=== PATIENT | female | born 1975 | race Caucasian/White ===

== ENCOUNTER 2016-07-23 06:17 | Day surgery (SDC) | payer BC, MEDICAID, OTHER ==
--- NOTE | 2016-07-17 20:14 | HP ---
HISTORY AND PHYSICAL: ADDENDUM: PHYSICAL EXAMINATION EXTREMITIES: Exam of the right lower extremity, the incisions over the lateral aspect of the ankle are well healed, as well as the skin graft. The overall alignment shows some slight hind foot valgus but reconstructive osteotomy previously has helped this. She has no edema, ecchymosis, or gross deformities. She has limited range of motion of her hind foot; however, she has 5/5 strength throughout. Her sensation to light touch is intact. She has 2+ dorsalis pedis pulse. IMPRESSION: Right ankle osteoarthritis. PLAN: The patient is to undergo right total ankle replacement by Dr. Miles on 07/23/16. The risks, benefits, and postoperative course were discussed with the patient at length and she would like to proceed. She has a prescription for oxycodone for postoperative pain. She was also given a prescription for a shower chair for assistance after surgery as well. All of her questions were answered to her full satisfaction. We will follow up with the patient in the postoperative phase. RODRIGUEZ MARS [id number]/CPS #: [id number] TOSHIA
--- NOTE | 2016-07-17 20:55 | HP ---
CONTINUATION ADDENDUM NOW INCLUDED ON THIS REPORT PREOPERATIVE HISTORY AND PHYSICAL: DATE OF ADMISSION: 07/23/16 PROVIDER: Jori Miles MD (DICTATED BY RODRIGUEZ MARS) CHIEF COMPLAINT: Right ankle pain. HISTORY OF PRESENT ILLNESS: Alma is a 40-year-old female who has been followed by Dr. Miles for the past couple of years with ongoing pain in her right ankle. She states that she has always had chronic flat feet and developed a progressive collapse and then she underwent a triple arthrodesis in [place] [address] Grider and she felt as though this alleviated a lot of pain in the left side. However, the right side continued to bother her. In April 2012, she underwent a same procedure on the right which was complicated by an infection postoperatively. She underwent multiple irrigations and debridements. She also had a radial forearm free flap skin grafting to cover the defect. She then had some of the hardware removed in October 2012. She had persistent pain since that time. She underwent a subsequent hardware removal in 2014 which she has done fairly well with. She continues to have some pain in the lateral aspect of the ankle and has undergone multiple cortisone injections. She has also had progressively worsening osteoarthritic changes on her x-ray. She is interested in surgical intervention and after long discussion, she decided on a total ankle replacement. PAST MEDICAL HISTORY: Insulin-dependent diabetes, hypercholesterolemia. PAST SURGICAL HISTORY: Triple arthrodesis on the right ankle, triple arthrodesis on the left ankle, subsequent hardware removal of the right ankle, skin grafting of the right ankle as well. She had a , carpal tunnel release and tonsillectomy. She reports no complications with anesthesia with any of those procedures. CURRENT MEDICATIONS: 1. Percocet 5/325 mg 1 tab b.i.d. p.r.n. pain. 2. Victoza 1.8 mg as directed 3. Humalog insulin pump. 4. Atorvastatin. 5. Calcium 20 mg p.o. daily. 6. Topamax 50 mg as needed. 7. Pramipexole 0.5 mg p.o. q.h.s. for restless leg. 8. Zyrtec Allergy as needed. 9. Mononessa 0.25 mg-35 mcg p.o. daily. 10. Multivitamin as directed. 11. Vitamin D 1000 units p.o. daily. 12. Iron supplement 325 mg p.o. daily. 13. Vitamin C supplement 500 mg p.o. daily. ALLERGIES: BACTRIM, SHELLFISH, . She claims to have had hives with ASPIRIN. 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 She denies tobacco use. She denies acholic beverages. She exercises rarely. REVIEW OF SYSTEMS: Constitutional: Negative for recent hospitalization, fevers , chills, night sweats, or unexplained weight loss. Head: Negative for headaches, lightheadedness, or balance problems. Cardiovascular: Negative for chest or arm pain with exertion. History of heart attack, heart murmur, heart palpitations, high blood pressure, embolism, or deep vein thrombosis. Respiratory: Negative for chronic cough, shortness of breath with exertion, asthma, or COPD. Gastrointestinal: Negative for heartburn, nausea, vomiting, diarrhea, constipation, or GERD. Genitourinary: Negative for nighttime urination, frequency of urination, urinary tract infection, or kidney problems. Musculoskeletal: Negative for chronic back pain or recent fractures. Skin: Negative for rashes, lesions, lumps or sores. Neurologic: Negative for seizure , stroke, epilepsy, depression or anxiety. Endocrine: Negative for thyroid problems, positive for diabetes. Hematology: Negative for easy bleeding, bruising or anemia. PHYSICAL EXAMINATION GENERAL: She is a well-developed, well-nourished, heavyset female, in no acute distress at rest. She is alert and oriented x3 with appropriate mood and affect. VITAL SIGNS: The patient is 5 feet 9 inches and 254 pounds, blood pressure 114/ 76, pulse is 74, respirations 18. HEENT: Normocephalic, atraumatic. Hearing and vision are grossly intact. NECK: Trachea is midline. RESPIRATORY: Lungs are clear to auscultation bilaterally. No wheezes, rales or rhonchi. CARDIOVASCULAR: Regular rate and rhythm. No murmurs, rubs, or gallops. Normal S1 and S2. ABDOMEN: Soft, nondistended, nontender. Normal bowel sounds. CONTINUATION ADDENDUM: EXTREMITIES: Exam of the right lower extremity, the incisions over the lateral aspect of the ankle are well healed, as well as the skin graft. The overall alignment shows some slight hind foot valgus but reconstructive osteotomy previously has helped this. She has no edema, ecchymosis, or gross deformities. She has limited range of motion of her hind foot; however, she has 5/5 strength throughout. Her sensation to light touch is intact. She has 2+ dorsalis pedis pulse. IMPRESSION: Right ankle osteoarthritis. PLAN: The patient is to undergo right total ankle replacement by Dr. Miles on 07/23/16. The risks, benefits, and postoperative course were discussed with the patient at length and she would like to proceed. She has a prescription for oxycodone for postoperative pain. She was also given a prescription for a shower chair for assistance after surgery as well. All of her questions were answered to her full satisfaction. We will follow up with the patient in the postoperative phase. RODRIGUEZ MARS [id number]/CPS #: [id number]/CPS #: [id number] TOSHIA
[~2016-07-23 06:17] MED LIST: Buffered Lidocaine 1% SYR 3ML* 3 ML/SYR SYRINGE INTRADERM ONE; Famotidine IV* 10 MG/ML 2 ML (20 mg) IV ONE
[2016-07-23] MEDS ORDERED: Famotidine IV* 10 MG/ML 2 ML (20 mg) ONE (06:19)
[2016-07-23] MEDS ORDERED: ceFAZolin 2 GM PREMIX(*) 2 GM/50 ML BAG IVPB ONE (06:19)
[2016-07-23 06:32] LABS: Manual Entry Verification CAR0052; UR Preg Internal Control QC Line Present; UR Preg Kit Lot# 6030156
[2016-07-23] MEDS ORDERED: Morphine INJ* 10 MG/ML 1 ML SYRINGE ONE ×2 (07:06→09:33)
[2016-07-23] MEDS ORDERED: fentaNYL* 50 MCG/ML 2 ML VIAL (100 MCG VIAL) ONE (07:11)
[2016-07-23] MEDS ORDERED: KETAMINE HCL* 50 MG/ML 10 ML VIAL ONE (07:11)
[2016-07-23] MEDS ORDERED: Midazolam* 1 MG/ML 5 ML VIAL (5 MG) ONE (07:12)
[2016-07-23] MEDS ORDERED: Bupivacaine 0.5% SDV PF* 30 ML VIAL ONE (07:43)
[2016-07-23] MEDS ORDERED: fentaNYL* 50 MCG/ML 2 ML VIAL (100 MCG VIAL) IV PRN (08:10)
[2016-07-23] MEDS ORDERED: oxyCODONE TAB* 5 MG TAB PO PRN (08:10)
[2016-07-23] MEDS ORDERED: PROCHLORPERAZINE INJ 5 MG/ML 2 ML VIAL IV PRN (08:10)
[2016-07-23] MEDS ORDERED: Morphine INJ* 2 MG/ML 1 ML SYRINGE IV PRN (08:10)
[2016-07-23] MEDS ORDERED: Bupivacaine 0.25% SDV* 30 ML ONE (08:43)
[2016-07-23] MEDS ORDERED: PROCHLORPERAZINE INJ 5 MG/ML 2 ML VIAL ONE (08:43)
[2016-07-23] MEDS ORDERED: Propofol* 10 MG/ML 20 ML BTL IV PUSH ONE (08:43)
[2016-07-23] MEDS ORDERED: Ondansetron INJ* 2 MG/ML VIAL ONE (08:43)
[2016-07-23] MEDS ORDERED: Lidocaine 2% PF * 5 ML VIAL ONE (08:43)
[2016-07-23] MEDS ORDERED: oxyCODONE TAB* 5 MG TAB ONE (10:34)
[2016-07-23 11:33] VITALS: BP 102/66
--- NOTE | 2016-07-23 18:12 | RAD ---
INDICATION: RIGHT total ankle replacement COMPARISON: November 25, 2014 radiographs TECHNIQUE: 38.9 seconds fluoroscopy. FINDINGS: Spot images document a total talocrural joint prosthesis in place with gross anatomic alignment. Innumerable surgical clips at the visualized distal lower leg and lateral aspect of the ankle. IMPRESSION: Procedural fluoroscopy. CPT II Codes: 6045F
--- NOTE | 2016-07-24 01:41 | OP ---
DATE OF OPERATION: 07/23/16 [facility] DATE OF : 75 SURGEON: Jori Miles MD. ASSISTANTS: RODRIGUEZ Padilla and RODRIGUEZ Mckeon ANESTHESIOLOGIST: Joseph Zendejas MD ANESTHESIA: General, with nerve block. PRE-OP DIAGNOSIS: Right tibiotalar arthritis. POST-OP DIAGNOSIS: Right tibiotalar arthritis. OPERATIVE PROCEDURE: Right tibiotalar arthroplasty with a STAR total ankle, extra small talus and large tibia, 7 mm Poly. DESCRIPTION OF PROCEDURE: The patient was taken to the operating room and a longitudinal incision was made over the tibiotalar joint. The anterior tibial tendon was protected medially, so we went through the retinaculum over the extensor hallucis. Neurovascular bundle was reflected laterally. We placed Rockwell retractors around the medial and lateral malleolus and then placed in the distal tibial cutting jig. Proper alignment and translation distally was verified using the C-arm and then we cut the distal tibia. Some of the bone fragments in the posterior malleolus were not able to be removed at this point. We then placed the ankle in neutral and centered the guide pin in the middle of the talus and made a flat cut on the talar dome. The datum was then placed in the center of the talar dome to allow the anterior and posterior cuts. At this point, we were able to remove the remaining portion of the posterior malleolus. The basket guide appeared to fit well and we cut the medial lateral gutter with a sabre saw and then prepared the keel for the center of the talar component. We sized the talus to an extra small and the tibia to a large. The distal tibial angle hole guide was placed and we drilled out the parallel tho for the tibia. At this point, the extra small talus was driven in on to the kaibab bone of the talus. Good fixation appeared to be obtained and similarly the large tibia was placed at the plafond, driven anterior and posterior. We sized a 7 mm Poly which gave medial lateral stability. We irrigated thoroughly closing the retinaculum with interrupted 0-Vicryl sutures, 2-0 Vicryl for the subcu and quinn for the skin, a compression dressing and plaster splint applied. [id number]/[facility] #: [id number] [facility]
== END 2016-07-23 12:01 | disposition home or self-care (01) ==
LOC: OR 06:17
PROVIDERS: ATTEND Orthopaedic Surgery
DX: M19.071 Primary osteoarthritis, right ankle and foot (principal); E11.9 Type 2 diabetes mellitus without complications; Z79.4 Long term (current) use of insulin; E78.5 Hyperlipidemia, unspecified; G89.29 Other chronic pain; Z79.891 Long term (current) use of opiate analgesic
CPT/HCPCS: 76000; 81025; A9270-GY; C1776 ×2; J0690; J0780; J2250; J2270; J2405; J2704; J3010

== ENCOUNTER 2016-09-20 10:39 | Inpatient (IN) | payer OTHER ==
[2016-09-20] MEDS ORDERED: oxyCODONE/Acetamin 5/325 MG* TAB PO PRN (14:23)
[2016-09-20] MEDS ORDERED: Acetaminophen TAB* 325 MG PO PRN (14:23)
[2016-09-20] MEDS ORDERED: Ondansetron INJ* 2 MG/ML VIAL IV PRN (14:23)
[2016-09-20] MEDS ORDERED: diPHENhydraMINE IV* 50 MG/ML 1 ml VIAL (BENADRYL) IV PRN (14:23)
[2016-09-20] MEDS ORDERED: Vancomycin per Pharmacy* NOTE FOLLOW UP PRN (14:56)
[2016-09-20] MEDS ORDERED: Vancomycin(*) 1,500 MG in NS 0.9% 250 ML* 250 ML IVPB ONE (15:00)
[2016-09-20 15:15] LABS: Hematocrit 38 % (35-47); Hemoglobin 12.3 g/dl (12.0-16.0); Mean Corpuscular HGB Conc 33 g/dl (31-36); Mean Corpuscular Hemoglobin 29 pg (27-31); Mean Corpuscular Volume 89 fL (80-97); Mean Platelet Volume 11 um3 (7.4-10.4); Red Blood Count 4.24 10^6/ul (4.0-5.4); Red Cell Distribution Width 14 % (10.5-15); White Blood Count 9.4 10^3/ul (3.5-10.8)
[2016-09-20 15:26] LABS: C Reactive Protein 54.84 mg/L (< 5.00); EGFR African American 85.4 (>60); EGFR Non-African American 66.4 (>60)
[2016-09-20] MEDS: oxyCODONE/Acetamin 5/325 MG* TAB PO PRN ×3 (15:42→22:30)
[2016-09-20] MEDS: Enoxaparin(*) 40 MG/0.4 ML SYR SUBCUT SCH (16:27)
[2016-09-20 16:54] LABS: Erythrocyte Sed Rate 47 mm/Hr (0-14)
[2016-09-20] MEDS ORDERED: INSULIN LISPRO SUBCUT SCH (18:00)
--- NOTE | 2016-09-20 18:04 | HP ---
PREOPERATIVE HISTORY AND PHYSICAL: DATE OF ADMISSION: 09/20/16 PROVIDER: Jori Miles MD CHIEF COMPLAINT: Right leg pain. HISTORY OF PRESENT ILLNESS: Alma is a 41-year-old female, who has been followed previously by Dr. Miles for end-stage osteoarthritis of the right ankle. She underwent a total ankle replacement on 07/23/16 and has had some complications with healing. She recently had some wound breakdown, which has gradually worsened. She has been applying bacitracin over the area; however, the breakdown has continued. She has been presented to the office today with significant increase in pain and swelling over the last several days as well as low-grade fevers. She does not have a recorded temperature; however, she has been on Cipro for the last couple of weeks. She denies any new injury. She denies any paresthesias or numbness in the legs. PAST MEDICAL HISTORY: Insulin-dependent diabetes and hypercholesterolemia. ALLERGIES: ASPIRIN, BACTRIM, GLYSET, SULFA, and SHELLFISH. CURRENT MEDICATIONS: 1. Gabapentin 300 mg p.o. q.h.s. 2. Oxycodone 5 mg p.o. q.6 to 8 hours p.r.n. pain. 3. Victoza 1.8 mg. 4. Humalog insulin pump. 5. Atorvastatin 20 mg p.o. daily. 6. Pramipexole 0.5 mg p.o. q.h.s. 7. Zyrtec Allergy as needed. 8. Mononessa 0.25 mg/35 mcg p.o. daily. 9. Multivitamin daily. 10. Vitamin D 1000 units daily. 11. Iron supplement 325 mg daily. 12. Vitamin C 500 mg daily. PAST SURGICAL HISTORY: Triple arthrodesis of the right ankle, triple arthrodesis of the left ankle with subsequent hardware removal of the right ankle, skin grafting on the right ankle, right total ankle replacement, C- section, carpal tunnel release, and tonsillectomy. 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 She denies tobacco use. She denies acholic beverages. She exercises rarely. She denies any illicit drug use. REVIEW OF SYSTEMS: Constitutional: Positive for fevers and chills. Negative for night sweats or unexplained weight loss. Head: Negative for headaches, lightheadedness, or balance problems. Cardiovascular: Negative for chest or arm pain with exertion, history of heart attack, heart murmur, heart palpitations, high blood pressure, embolism, or deep vein thrombosis. Respiratory: Negative for chronic cough, shortness of breath with exertion, asthma, or COPD. Gastrointestinal: Negative for heartburn, nausea, vomiting, diarrhea, constipation, or GERD. Genitourinary: Negative for nighttime urination, frequency of urination, urinary tract infection, or kidney problems. Musculoskeletal: Negative for chronic back pain or recent fractures. Positive for right leg swelling. Skin: Negative for rashes, lesions, lumps, or sores. Positive for some wound dehiscence after surgery. Neurologic: Negative for seizure, stroke, epilepsy, depression, or anxiety. Endocrine: Negative for thyroid problems. Positive for diabetes. Hematology: Negative for easy bleeding, bruising, or anemia. PHYSICAL EXAMINATION VITAL SIGNS: The patient is 5 feet 9 inches and 254 pounds. Blood pressure 117 /75, pulse of 80, temperature 97.7. GENERAL: She is a well-developed, well-nourished, female, in no acute distress at rest. She is alert and oriented x3 with appropriate mood and affect. HEENT: Normocephalic, atraumatic. Hearing and vision are grossly intact. NECK: Trachea is midline. CARDIOVASCULAR: Regular rate and rhythm. No murmurs, rubs, or gallops. Normal S1 and S2. RESPIRATORY: Lungs are clear to auscultation bilaterally. No wheezes, rales, or rhonchi. ABDOMEN: Soft, nondistended, nontender. Normal bowel sounds. EXTREMITIES: At the right lower extremity, the patient has 2 areas of wound dehiscence throughout the anterior incision over the ankle. There is some exposed tendon to the mid portion of the wound. There is significant surrounding erythema and edema throughout the lower leg. She is tender to palpation diffusely around the ankle joint as well as up into the posterior calf. She is able to dorsiflex and plantarflex with the ankle; however, this causes her significant discomfort. Her sensation to light touch is intact. She has a 2+ dorsalis pedis pulse. IMPRESSION: Right lower extremity cellulitis and possible deep venous thrombosis. PLAN: The patient will be directly admitted to the [facility] for IV antibiotics. CBC, BMP, ESR, and CRP will be ordered to rule out any sort of infectious cause. Joint aspiration was attempted in the office, however, no fluid was produced for culture. The patient will undergo an ultrasound to rule out DVT. We will consult Dr. Machado for Infectious Disease and antibiotic selection. We will also consult hospitalist for comanagement of her medical problems including her diabetes to ensure that patient had good blood sugar control. RODRIGUEZ MARS [id number]/[facility] #: [id number] TOSHIA
[2016-09-20] MEDS: Atorvastatin* 20 MG TAB PO SCH (18:09)
[2016-09-20] MEDS: Multivitamins/Minerals TAB PO SCH (18:09)
[2016-09-20] MEDS: Cholecalciferol TAB* 1000 UNITS PO SCH (18:09)
[2016-09-20] MEDS: Cetirizine* 10 MG TAB PO SCH (18:09)
[2016-09-20] MEDS: Topiramate TAB(*) 25 MG PO SCH (18:10)
[2016-09-20] MEDS ORDERED: Insulin LISPRO* FOR INSULIN PUMP SUBCUT SCH (18:15)
--- NOTE | 2016-09-20 18:58 | RAD ---
Indication: Right leg edema. Duplex Doppler sonography of the deep venous system of the right lower extremity deep venous system was performed. Bilaterally the common femoral veins appear patent and compressible. Right proximal greater saphenous vein, proximal deep femoral vein, femoral vein, popliteal vein, posterior tibial veins and peroneal veins appear patent and compressible. Portions of the peroneal veins are limited in evaluation. IMPRESSION: NO EVIDENCE OF DEEP VENOUS THROMBOSIS IS IDENTIFIED.
[2016-09-20] MEDS: Gabapentin CAP(*) 300 MG PO SCH (20:17)
[2016-09-20] MEDS: Pramipexole TAB* 0.5 MG PO SCH (20:17)
--- NOTE | 2016-09-20 21:53 | CONS ---
CC: Dr. Jori Miles; Dr. Niall Plascencia * CONSULTATION NOTE: DATE OF CONSULT: 09/20/16 PRIMARY CARE PROVIDER: Dr. Niall Plascencia. PHYSICIAN REQUESTING CONSULTATION: Dr. Jori Miles. ATTENDING PHYSICIAN: Dr. Butch Mcgee (dictated by Wendy Bailey NP). REASON FOR CONSULT: Co-medical management in a patient with a history of diabetes and hyperlipidemia CHIEF COMPLAINT: Right ankle swelling and redness. HISTORY OF PRESENT ILLNESS: Ms. Thurman is a 41-year-old female with past medical history significant for type 1 diabetes mellitus and multiple right ankle surgeries, who states that she underwent a triple arthrodesis in [place] to her right ankle. The patient reports having this revised twice undergoing multiple steroid injections and hardware removal and finally underwent a right total ankle replacement in July of this year with Dr. Mlies. The patient states she has been doing well postoperatively, had seen Dr. Miles on 09/06/16 , 09/13/16, and today for complaints of right ankle swelling for about 3 week. The patient was started on Cipro on 09/13/16. The patient denies any recent fever, chills, shortness of breath, chest pain, nausea, vomiting, diarrhea. The patient states that her glucose has been well controlled and that her last hemoglobin A1c was 6.1. Hospitalists were asked to assist with the comanagement of this patient during her hospitalization. PAST MEDICAL HISTORY: 1. Type 1 diabetes mellitus. 2. Hypercholesterolemia. 3. Migraines. 4. Restless leg syndrome. PAST SURGICAL HISTORY: 1. Status post right ankle triple arthrodesis x2. 2. Status post left ankle arthrodesis in 2005. 3. Status post removal of the right ankle. 4. Status post skin grafting to the right ankle. 5. Status post section in 2004. 6. Status post bilateral carpal tunnel release. 7. Status post tonsillectomy in 1997. HOME MEDICATIONS: Include: 1. Ferrous sulfate 325 mg oral daily. 2. Vitamin C 500 mg oral daily. 3. SymlinPen 60 mcg subcutaneously with meals. 4. Oxybutynin 5 mg oral every 5 days. 5. Gabapentin 600 mg oral daily at bedtime. 6. Cipro 500 mg oral twice daily for 21 days, the patient started taking on . 7. Lipitor 20 mg oral every evening. 8. Mirapex 1 mg oral every evening. 9. Ortho-Cyclen 1 tablet oral every evening. 10. Multivitamin 1 tablet oral daily. 11. Vitamin D 2000 units oral every evening. 12. Zyrtec 10 mg oral every evening. 13. Sonata 10 mg oral daily at bedtime as needed for sleep. 14. Topamax 50 mg oral every evening. 15. Imitrex 1 tablet oral daily as needed for migraine headaches. 16. Oxycodone 5 to 10 mg oral every 6 hours as needed for pain. 17. Humalog insulin pump basal rate is from midnight to 0659, 1.1 units per hour; 0700 to 1459, 2.5 units an hour; and from 1500 to 2359, 1.5 units an hour for a total of 38.8 basal units daily. The patient also uses sliding scale coverage with her meals for carbohydrate coverage and fingerstick coverage. ALLERGIES: ALMOND MEAL, ASPIRIN, MIGLITOL, SHELLFISH, SULFA, BACTRIM, TREE NUTS , ALMONDS, CASHEWS, and PECANS. FAMILY HISTORY: The patient reports that her father has had several myocardial infarctions. The patient's father and 2 maternal aunts have a history of diabetes mellitus. The patient's maternal grandfather has a history of colon cancer. 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 She denies tobacco or recreational drug use. She rarely drinks alcoholic beverages. The patient's boyfriend, Frank Moon; mother, Kristan Sheppard; and cousin, Juliette Chu, will be her surrogate decision makers in the event that she is unable to make decisions for herself. REVIEW OF SYSTEMS: I performed a 14-point review of systems. All the pertinent positives and negatives are mentioned in the history of present illness. The remaining of review of systems are negative. PHYSICAL EXAM: Vital Signs: Temperature 98.4, heart rate 90, respiratory rate 18, O2 sat 100% on room air, blood pressure 146/60. General Appearance: The patient is alert, pleasant, appears to be in no acute distress. HEENT: Normocephalic, atraumatic. Pupils are equal and reactive to light. Extraocular movements are intact. Respiratory: There is no accessory muscle use and the lungs are clear to auscultation bilateral. Cardiovascular: Regular rate and rhythm. S1, S2 are present. There are no murmur, rubs, or gallops heard. Abdomen: Soft, nontender, nondistended. There are bowel sounds present x4. Extremities: There is trace bilateral lower extremity edema. DP and PT pulses are 2+ and symmetric. Musculoskeletal: There is no clubbing or cyanosis noted. The patient exhibits good strength in all extremities. Neurologic: The patient is alert and oriented x4. Cranial nerves II through XII are grossly intact. Psychological: The patient is calm and cooperative. Skin: The patient has some erythema to her right lower extremity and Jace wrap to her right lower extremity. DIAGNOSTIC STUDIES/LAB DATA: CRP 54.84. Serum creatinine 0.93. White blood cell count 9.4, hemoglobin 12.3, hematocrit 38, and platelet count 287. ESR pending. IMPRESSION: Ms. Thurman is a 41-year-old with past medical history significant for type 1 diabetes mellitus, hypercholesterolemia, who is status post right total ankle replacement in July of this year, who presented to the hospital with a right lower extremity cellulitis. Hospitalists have been asked to assist with co-medical management in this patient during her hospitalization. ASSESSMENT AND PLAN: 1. Right lower extremity cellulitis. The patient will be on vancomycin per Orthopedic Surgery. They have asked for a Infectious Disease consultation. 2. Diabetes mellitus. The patient will be continued on her home insulin pump with a basal dosing from midnight to 0659 of 1.1 units an hour; from 0700 to 1459, 2.5 units an hour; and from 1500 to 2359, 1.5 units an hour in addition to carb and insulin sliding scale coverage per her home routine. The patient reports her last hemoglobin A1c was 6.1 and she follows with her schedule hanger in [place] every 3 months. For now we will hold her SymlinPen. 3. Hyperlipidemia. The patient will be continued on her home atorvastatin. 4. Migraines. The patient will be continued on her daily Topamax. 5. Restless leg syndrome. The patient will be continued on her home Mirapex. 6. Fluids, electrolytes, nutrition. The patient will be on a consistent carbohydrate diet. 7. Code status. Full code. 8. DVT prophylaxis. The patient is at highest risk and will be on Lovenox per Orthopedics. 9. Disposition. Inpatient. TIME SPENT: The time for this consultation was 60 minutes, greater than half the time was spent [id number] with the patient discussing medication, past medical history, the events leading up to her arrival today, and performing a physical examination. The case has been reviewed with the attending doctor, Dr. Mcgee, who agrees with the plan of care. Reviewed by [place] 09/21/16 0719 [id number]/[facility]PS #: [id number]/CPS #: [id number] MTDPat
--- NOTE | 2016-09-20 22:34 | CONS ---
ADDENDUM: I accidentally dictated a consultation report as a history and physical. If you could please move that over to be a consultation report. SHANNAN HANNA, EBONIE [id number]/[facility] #: [id number] TOSHIA
[2016-09-20] MEDS: Vancomycin(*) 1,000 MG in NS 0.9% 250 ML* 250 ML IVPB SCH (23:53)
[2016-09-21] MEDS: Morphine INJ* 2 MG/ML 1 ML SYRINGE IV PRN (02:08)
[2016-09-21] MEDS: oxyCODONE/Acetamin 5/325 MG* TAB PO PRN ×5 (06:16→22:35)
[2016-09-21] MEDS: Vancomycin(*) 1,000 MG in NS 0.9% 250 ML* 250 ML IVPB SCH ×2 (08:02→17:27)
[2016-09-21] MEDS ORDERED: Ferrous Sulfate TAB* 325 MG PO SCH (09:00)
[2016-09-21] MEDS ORDERED: Ascorbic Acid TAB* 500 MG PO SCH (09:00)
[2016-09-21] MEDS: cefTRIAXone VIAL(*) 1,000 MG in NS 0.9% 50 ML* 50 ML IVPB SCH (12:10)
--- NOTE | 2016-09-21 13:43 | PN ---
Progress Note - Progress Note Date of Service: 09/21/16 SOAP: Subjective: []Patient seen at bedside with nursing staff. She is doing better overall but would like to know if she has to stay over the weekend or can go home later with IV antibiotics with a PICC line. Dr. Machado is not available until . Objective: [] Vital Signs Temp 98.0 F 09/21/16 07:43 Pulse 71 09/21/16 07:43 Resp 18 09/21/16 09:28 BP 109/60 09/21/16 07:43 Pulse Ox 100 09/21/16 07:43 Intake & Output 09/20/16 09/21/16 09/21/16 18:59 06:59 18:59 Intake Total 2235 913 Output Total 3825 1800 Balance -1590 -887 Weight 252 lb Intake: IV Fluids 630 161 LR 630 161 IVPB 265 272 Vancomycin 265 272 Oral 1340 480 Output: Urine 3825 1800 Other: # Bowel Movements 0 Estimated Stool Amount Medium Laboratory Results - last 24 hr 09/20/16 09/20/16 09/20/16 15:00 15:00 18:07 WBC 9.4 RBC 4.24 Hgb 12.3 Hct 38 MCV 89 MCH 29 MCHC 33 RDW 14 Plt Count 287 MPV 11 H Neut % (Auto) 55.0 Lymph % (Auto) 27.2 [place] % (Auto) 9.7 H Eos % (Auto) 7.8 H Baso % (Auto) 0.3 Absolute Neuts (auto) 5.1 Absolute Lymphs (auto) 2.5 Absolute Monos (auto) 0.9 H Absolute Eos (auto) 0.7 H Absolute Basos (auto) 0 Absolute Nucleated RBC 0 Nucleated RBC % 0.1 ESR 47 H Creatinine 0.93 Est GFR ( Amer) 85.4 Est GFR (Non-Af Amer) 66.4 POC Glucose (mg/dL) 120 H C-Reactive Protein 54.84 H 09/20/16 09/21/16 09/21/16 21:34 07:56 12:07 WBC RBC Hgb Hct MCV MCH MCHC RDW Plt Count MPV Neut % (Auto) Lymph % (Auto) [place] % (Auto) Eos % (Auto) Baso % (Auto) Absolute Neuts (auto) Absolute Lymphs (auto) Absolute Monos (auto) Absolute Eos (auto) Absolute Basos (auto) Absolute Nucleated RBC Nucleated RBC % ESR Creatinine Est GFR ( Amer) Est GFR (Non-Af Amer) POC Glucose (mg/dL) 87 94 77 C-Reactive Protein Right LLE dressings changed, 2 small areas of wound dehiscence, proximal is drying out, distal one with moderate wet necrosis. No foul odor. Right LLE swelling overall has improved Mild diffuse leg erythema and mild warmth noted neuro intact distally New betadine soaked 4x4s, kerlix and Jace applied to right ankle Assessment: []Cellulitis and Right dorsal ankle wound infection s/p Right total ankle arthroplasty 08/01 Plan: []IV Vanco and Ceftriaxone Await any changes per Dr. Miles
[2016-09-21] MEDS: Enoxaparin(*) 40 MG/0.4 ML SYR SUBCUT SCH (15:16)
[2016-09-21] MEDS ORDERED: Vancomycin Trough Check NOTE FOLLOW UP ONE (16:00)
--- NOTE | 2016-09-21 17:37 | PN ---
Subjective Date of Service: 09/21/16 Interval History: Patient seen and examined at bedside. Pt states that she is feeling well. Denies fever, chills, shortness of breath, chest discomfort, N/V/D. Pt feels that the swelling in her LE is improving today. Family History: Unchanged from Admission Social History: Unchanged from Admission Past Medical History: Unchanged from Admission Objective Active Medications: Acetaminophen (Tylenol Tab*) 650 mg PO Q6H PRN Reason: PAIN OR TEMPERATURE Ascorbic Acid (Vitamin C Tab*) 500 mg PO 2000 [facility] Atorvastatin Calcium (Lipitor*) 20 mg PO QPM TRAY Cetirizine HCl (Zyrtec*) 10 mg PO QPM TRAY Reason: Protocol Cholecalciferol (Vitamin D Tab*) 2,000 units PO QPM TRAY Diphenhydramine HCl (Benadryl Iv*) 25 mg IV Q6H PRN Reason: PRURITIS Enoxaparin Sodium (Lovenox(*)) 40 mg SUBCUT Q24H TRAY Ferrous Sulfate (Ferrous Sulfate Tab*) 325 mg PO 2000 [facility] Gabapentin (Neurontin Cap(*)) 600 mg PO BEDTIME TRAY Vancomycin HCl 1,000 mg/ (Sodium Chloride) 250 mls @ 166.667 mls/hr IVPB Q8H TRAY Ceftriaxone Sodium 1,000 mg/ (Sodium Chloride) 50 mls @ 200 mls/hr IVPB Q24H TRAY Insulin Human Lispro (Humalog*) 0 units SUBCUT .SEE PROTOCOL TRAY Reason: Protocol Morphine Sulfate (Morphine Inj (Syringe)*) 2 mg IV Q2H PRN Reason: PAIN Multivitamins/Minerals (Theragran/Minerals Tab*) 1 tab PO QPM [facility] Ondansetron HCl (Zofran Inj*) 4 mg IV Q6H PRN Reason: NAUSEA Oxycodone/Acetaminophen (Percocet 5/325 Tab*) 1 tab PO Q3H PRN Reason: PAIN - MODERATE Oxycodone/Acetaminophen (Percocet 5/325 Tab*) 2 tab PO Q3H PRN Reason: PAIN - MODERATE Pharmacy Consult (Vancomycin Per Pharmacy*) 1 note FOLLOW UP . PRN Reason: PER PROTOCOL Pramipexole Dihydrochloride (Mirapex Tab*) 1 mg PO QPM TRAY Topiramate (Topamax(*)) 50 mg PO QPM [facility] Vital Signs 0709/20/16 09/20/16 17:42 19:06 19:37 Temperature 99.0 F Pulse Rate 80 Respiratory 18 18 16 Rate Blood Pressure 109/38 (mmHg) O2 Sat by Pulse 97 Oximetry 09/20/16 09/20/16 09/20/16 22:17 22:30 23:28 Temperature 98.2 F Pulse Rate 71 Respiratory 16 18 16 Rate Blood Pressure 109/44 (mmHg) O2 Sat by Pulse 100 Oximetry 09/21/16 09/21/16 09/21/16 03:50 06:16 07:30 Temperature 98.0 F Pulse Rate 70 Respiratory 16 16 14 Rate Blood Pressure 110/45 (mmHg) O2 Sat by Pulse 100 Oximetry 09/21/16 09/21/16 09/21/16 07:43 08:16 09:28 Temperature 98.0 F Pulse Rate 71 Respiratory 14 18 18 Rate Blood Pressure 109/60 (mmHg) O2 Sat by Pulse 100 Oximetry 09/21/16 09/21/16 09/21/16 13:35 13:57 15:17 Temperature 98.1 F 97.9 F Pulse Rate 75 74 Respiratory 15 5 20 Rate Blood Pressure 128/62 116/56 (mmHg) O2 Sat by Pulse 98 100 Oximetry Oxygen Devices in Use Now: None Appearance: NAD, sitting up in bed Eyes: No Scleral Icterus Ears/Nose/Mouth/Throat: Mucous Membranes Moist Respiratory: Symmetrical Chest Expansion and Respiratory Effort, Clear to Auscultation Cardiovascular: NL Sounds; No Murmurs; No JVD, RRR Abdominal: NL Sounds; No Tenderness; No Distention Extremities: - - Trace bilateral LE edema Skin: No Rash or Ulcers, - - DSG to right LE clean, dry and intact Neurological: Alert and Oriented x 3, NL Muscle Strength and Tone Lines/Tubes/Other Access: Clean, Dry and Intact Peripheral IV - site benign Nutrition: Taking PO's Result Diagrams: 09/20/16 15:00 09/20/16 15:00 Assess/Plan/Problems-Billing Assessment: Ms. Shen is a 41 yo female with PMH significant for DM type 1, HLD who is s/p right total ankle replacement who presented to the hospital with right LE cellulitis. Hospitalists have been asked to assist with co-medical management. - Patient Problems (1) Cellulitis Code(s): L03.90 - CELLULITIS, UNSPECIFIED SNOMED Code(s): 416002808 Comment: - Management per Ortho - Afebrile and no leukocytosis - ID consult pending - Continue Vanco and ceftriaxone (2) Diabetes Code(s): E11.9 - TYPE 2 DIABETES MELLITUS WITHOUT COMPLICATIONS SNOMED Code(s) : 40005179 Comment: - Glucose 70-90's - Continue insulin pump (3) HLD (hyperlipidemia) Code(s): E78.5 - HYPERLIPIDEMIA, UNSPECIFIED SNOMED Code(s): 11257869 Comment: - Continue atorvastatin (4) Migraines Code(s): G43.909 - MIGRAINE, UNSP, NOT INTRACTABLE, WITHOUT STATUS MIGRAINOSUS SNOMED Code(s): 53012415 Comment: - Continue Topamax (5) RLS (restless legs syndrome) Comment: - Continue Mirapex (6) DVT prophylaxis Code(s): NKV0436 - SNOMED Code(s): 766972515 Comment: - Continue Lovenox (7) Full code status Code(s): Z78.9 - OTHER SPECIFIED HEALTH STATUS SNOMED Code(s): 889898354 Status and Disposition: Inpatient. Disposition per Ortho.
[2016-09-21] MEDS: Multivitamins/Minerals TAB PO SCH (18:13)
[2016-09-21] MEDS: Topiramate TAB(*) 25 MG PO SCH (18:14)
[2016-09-21] MEDS: Pramipexole TAB* 0.5 MG PO SCH (18:14)
[2016-09-21] MEDS: Cholecalciferol TAB* 1000 UNITS PO SCH (18:14)
[2016-09-21] MEDS: Atorvastatin* 20 MG TAB PO SCH (18:14)
[2016-09-21] MEDS: Cetirizine* 10 MG TAB PO SCH (18:15)
[2016-09-21] MEDS: Gabapentin CAP(*) 300 MG PO SCH (20:26)
[2016-09-21] MEDS: Ferrous Sulfate TAB* 325 MG PO SCH (20:26)
[2016-09-21] MEDS: Ascorbic Acid TAB* 500 MG PO SCH (20:27)
[2016-09-22] MEDS: Vancomycin(*) 1,000 MG in NS 0.9% 250 ML* 250 ML IVPB SCH ×3 (00:09→16:02)
[2016-09-22] MEDS: Morphine INJ* 2 MG/ML 1 ML SYRINGE IV PRN ×3 (01:52→10:24)
[2016-09-22] MEDS: oxyCODONE/Acetamin 5/325 MG* TAB PO PRN ×4 (08:03→21:44)
--- NOTE | 2016-09-22 08:36 | PN ---
Progress Note - Progress Note Date of Service: 09/22/16 SOAP: Subjective: Pt doing well today, still has some pain but improving. Feels as though redness and swelling are much better. Denies CP/SOB, f/c Objective: Vitals: Temp Pulse Resp BP Pulse Ox 98.0 F 76 16 113/46 99 09/22/16 03:21 09/22/16 03:21 09/22/16 08:03 09/22/16 03:21 09/22/16 03:21 Gen: A&O x3, NAD laying in bed RLE: Incision still with some wound dehiscence, but surrounding erythema improved. No edema, +f/e at ankle and MTPs with less pain. N/V intact Assessment: R leg cellulitis s/p R total ankle replacement and wound dehiscence Plan: Cont IV abx and elevation Cont dressing changes BID Awaiting ID consult
[2016-09-22] MEDS: cefTRIAXone VIAL(*) 1,000 MG in NS 0.9% 50 ML* 50 ML IVPB SCH (11:41)
--- NOTE | 2016-09-22 12:58 | PN ---
Subjective Date of Service: 09/22/16 Interval History: Patient seen and examined at bedside. Pt states that her pain is controlled. Denies fever, chills, shortness of breath, chest discomfort, N/V/D. Pt states that the redness and swelling in her right LE are improving. Family History: Unchanged from Admission Social History: Unchanged from Admission Past Medical History: Unchanged from Admission Objective Active Medications: Acetaminophen (Tylenol Tab*) 650 mg PO Q6H PRN Reason: PAIN OR TEMPERATURE Ascorbic Acid (Vitamin C Tab*) 500 mg PO 2000 [facility] Atorvastatin Calcium (Lipitor*) 20 mg PO QPM TRAY Cetirizine HCl (Zyrtec*) 10 mg PO QPM TRAY Reason: Protocol Cholecalciferol (Vitamin D Tab*) 2,000 units PO QPM [facility] Diphenhydramine HCl (Benadryl Iv*) 25 mg IV Q6H PRN Reason: PRURITIS Enoxaparin Sodium (Lovenox(*)) 40 mg SUBCUT Q24H TRAY Ferrous Sulfate (Ferrous Sulfate Tab*) 325 mg PO 2000 [facility] Gabapentin (Neurontin Cap(*)) 600 mg PO BEDTIME TRAY Vancomycin HCl 1,000 mg/ (Sodium Chloride) 250 mls @ 166.667 mls/hr IVPB Q8H TRAY Ceftriaxone Sodium 1,000 mg/ (Sodium Chloride) 50 mls @ 200 mls/hr IVPB Q24H TRAY Insulin Human Lispro (Humalog*) 0 units SUBCUT .SEE PROTOCOL TRAY Reason: Protocol Morphine Sulfate (Morphine Inj (Syringe)*) 2 mg IV Q2H PRN Reason: PAIN Multivitamins/Minerals (Theragran/Minerals Tab*) 1 tab PO QPM [facility] Ondansetron HCl (Zofran Inj*) 4 mg IV Q6H PRN Reason: NAUSEA Oxycodone/Acetaminophen (Percocet 5/325 Tab*) 1 tab PO Q3H PRN Reason: PAIN - MODERATE Oxycodone/Acetaminophen (Percocet 5/325 Tab*) 2 tab PO Q3H PRN Reason: PAIN - MODERATE Pharmacy Consult (Vancomycin Per Pharmacy*) 1 note FOLLOW UP . PRN Reason: PER PROTOCOL Pharmacy Profile Note (Vancomycin Trough Check) 1 note FOLLOW UP 07 ONE Stop : 09/23/16 07:31 Pramipexole Dihydrochloride (Mirapex Tab*) 1 mg PO QPM TRAY Topiramate (Topamax(*)) 50 mg PO QPM [facility]RAY Vital Signs 09/21/16 09/21/16 09/21/16 13:35 13:57 15:17 Temperature 98.1 F 97.9 F Pulse Rate 75 74 Respiratory 15 5 20 Rate Blood Pressure 128/62 116/56 (mmHg) O2 Sat by Pulse 98 100 Oximetry 09/21/16 09/21/16 09/21/16 15:57 18:17 19:20 Temperature 98.1 F Pulse Rate 70 Respiratory 16 16 16 Rate Blood Pressure 120/47 (mmHg) O2 Sat by Pulse 100 Oximetry 09/21/16 09/21/16 09/21/16 22:35 23:35 23:47 Temperature 98.0 F Pulse Rate 71 Respiratory 18 18 18 Rate Blood Pressure 112/49 (mmHg) O2 Sat by Pulse 98 Oximetry 09/22/16 09/22/16 09/22/16 03:21 04:22 05:22 Temperature 98.0 F Pulse Rate 76 Respiratory 16 18 16 Rate Blood Pressure 113/46 (mmHg) O2 Sat by Pulse 99 Oximetry 09/22/16 09/22/16 09/22/16 07:38 08:00 08:03 Temperature 98.1 F Pulse Rate 83 Respiratory 16 16 16 Rate Blood Pressure 121/62 (mmHg) O2 Sat by Pulse 100 Oximetry Oxygen Devices in Use Now: None Appearance: NAD, laying in bed Eyes: No Scleral Icterus Ears/Nose/Mouth/Throat: Mucous Membranes Moist Respiratory: Symmetrical Chest Expansion and Respiratory Effort, Clear to Auscultation Cardiovascular: NL Sounds; No Murmurs; No JVD, RRR Abdominal: NL Sounds; No Tenderness; No Distention Skin: - - Dressing to right ankle clean, dry and intact Neurological: Alert and Oriented x 3, NL Muscle Strength and Tone Lines/Tubes/Other Access: Clean, Dry and Intact Peripheral IV - site benign Nutrition: Taking PO's Result Diagrams: 09/20/16 15:00 09/20/16 15:00 Assess/Plan/Problems-Billing Assessment: Ms. Shen is a 41 yo female with PMH significant for DM type 1, HLD who is s/p right total ankle replacement who presented to the hospital with right LE cellulitis. Hospitalists have been asked to assist with co-medical management. - Patient Problems (1) Cellulitis Code(s): L03.90 - CELLULITIS, UNSPECIFIED SNOMED Code(s): 200113842 Comment: - Management per Ortho - Afebrile and no leukocytosis - ID consult pending - Continue Vanco and ceftriaxone (2) Diabetes Code(s): E11.9 - TYPE 2 DIABETES MELLITUS WITHOUT COMPLICATIONS SNOMED Code(s) : 32595402 Comment: - Glucose 70-100's - Continue insulin pump (3) HLD (hyperlipidemia) Code(s): E78.5 - HYPERLIPIDEMIA, UNSPECIFIED SNOMED Code(s): 51344720 Comment: - Continue atorvastatin (4) Migraines Code(s): G43.909 - MIGRAINE, UNSP, NOT INTRACTABLE, WITHOUT STATUS MIGRAINOSUS SNOMED Code(s): 10124751 Comment: - Continue Topamax (5) RLS (restless legs syndrome) Comment: - Continue Mirapex (6) DVT prophylaxis Code(s): [id number] - SNOMED Code(s): 812303965 Comment: - Continue Lovenox (7) Full code status Code(s): Z78.9 - OTHER SPECIFIED HEALTH STATUS SNOMED Code(s): 684408382 Status and Disposition: Inpatient. Disposition per Ortho.
[2016-09-22] MEDS: Enoxaparin(*) 40 MG/0.4 ML SYR SUBCUT SCH (15:01)
[2016-09-22] MEDS: Cetirizine* 10 MG TAB PO SCH (18:12)
[2016-09-22] MEDS: Cholecalciferol TAB* 1000 UNITS PO SCH (18:12)
[2016-09-22] MEDS: Pramipexole TAB* 0.5 MG PO SCH (18:12)
[2016-09-22] MEDS: Topiramate TAB(*) 25 MG PO SCH (18:12)
[2016-09-22] MEDS: Multivitamins/Minerals TAB PO SCH (18:12)
[2016-09-22] MEDS: Atorvastatin* 20 MG TAB PO SCH (18:12)
[2016-09-22] MEDS: Ascorbic Acid TAB* 500 MG PO SCH (19:39)
[2016-09-22] MEDS: Ferrous Sulfate TAB* 325 MG PO SCH (19:39)
[2016-09-22] MEDS: Gabapentin CAP(*) 300 MG PO SCH (19:41)
[2016-09-23] MEDS: Morphine INJ* 2 MG/ML 1 ML SYRINGE IV PRN ×4 (00:40→23:32)
[2016-09-23] MEDS: Vancomycin(*) 1,000 MG in NS 0.9% 250 ML* 250 ML IVPB SCH ×3 (00:46→17:58)
[2016-09-23] MEDS: oxyCODONE/Acetamin 5/325 MG* TAB PO PRN ×5 (02:09→21:02)
[2016-09-23] MEDS ORDERED: Vancomycin Trough Check NOTE FOLLOW UP ONE (07:30)
[2016-09-23] MEDS ORDERED: Dextrose 50% Syringe 50 ML* 25 GM/50 ML SYRINGE IV PUSH PRN (08:35)
[2016-09-23 08:56] LABS: Hematocrit 34 % (35-47); Hemoglobin 11.4 g/dl (12.0-16.0); Mean Corpuscular HGB Conc 33 g/dl (31-36); Mean Corpuscular Hemoglobin 29 pg (27-31); Mean Corpuscular Volume 89 fL (80-97); Mean Platelet Volume 10 um3 (7.4-10.4); Red Blood Count 3.88 10^6/ul (4.0-5.4); Red Cell Distribution Width 14 % (10.5-15); White Blood Count 10.5 10^3/ul (3.5-10.8)
--- NOTE | 2016-09-23 09:00 | PN ---
Progress Note - Progress Note Date of Service: 09/23/16 SOAP: Subjective: Pt was seen sitting up in bed today. Pt states that she is doing well. Mild pain but continues to improve. Denies any SOB, CHest pain, nausea, vomiting, f/c /ns Objective: Gen: A&O x3, NAD laying in bed RLE: Incision still with some wound dehiscence, but surrounding erythema improved. No edema, +f/e at ankle and MTPs with less pain. N/V intact. Vital Signs Temp 98.1 F 09/23/16 07:20 Pulse 74 09/23/16 07:20 Resp 18 09/23/16 08:22 BP 125/56 09/23/16 07:20 Pulse Ox 98 09/23/16 07:20 Intake & Output 09/22/16 09/23/16 09/23/16 18:59 06:59 18:59 Intake Total 746 2287 Output Total 1900 3500 800 Balance -1154 -1213 -800 Intake: IV Fluids 41 50 NS (0.9%) 41 50 IVPB 380 535 ABX - CEFTRIAXONE 110 Vancomycin 270 535 Oral 325 1702 Output: Urine 1900 3500 800 Other: Date of Last Bowel 09/22/16 09/22/16 Movement # Bowel Movements 1 1 Estimated Stool Amount Medium Small Assessment: R leg cellulitis s/p R total ankle replacement and wound dehiscence Plan: Cont IV abx and elevation Cont dressing changes BID Awaiting ID consult
[2016-09-23 09:19] LABS: EGFR African American 89.9 (>60); EGFR Non-African American 69.9 (>60)
[2016-09-23 10:14] LABS: Vancomycin Trough 18.4 mcg/mL
--- NOTE | 2016-09-23 10:59 | PN ---
Subjective Date of Service: 09/23/16 Interval History: Patient seen and examined at bedside. Pt states that she is feeling well. Denies fever, chills, shortness of breath, chest discomfort, N/V/D. She feels that the redness to her right LE continues to improve. Pt reports an episode of hypoglycemia last night. Family History: Unchanged from Admission Social History: Unchanged from Admission Past Medical History: Unchanged from Admission Objective Active Medications: Acetaminophen (Tylenol Tab*) 650 mg PO Q6H PRN Reason: PAIN OR TEMPERATURE Ascorbic Acid (Vitamin C Tab*) 500 mg PO 2000 [facility] Atorvastatin Calcium (Lipitor*) 20 mg PO QPM [facility] Cetirizine HCl (Zyrtec*) 10 mg PO QPM TRAY Reason: Protocol Cholecalciferol (Vitamin D Tab*) 2,000 units PO QPM [facility]RAY Dextrose (D50w Syringe 50 Ml*) 12.5 gm IV PUSH .FOR FS < 60 - SS PRN Reason: FS < 60 Diphenhydramine HCl (Benadryl Iv*) 25 mg IV Q6H PRN Reason: PRURITIS Enoxaparin Sodium (Lovenox(*)) 40 mg SUBCUT Q24H [facility] Ferrous Sulfate (Ferrous Sulfate Tab*) 325 mg PO 2000 [facility] Gabapentin (Neurontin Cap(*)) 600 mg PO BEDTIME TRAY Ceftriaxone Sodium 1,000 mg/ (Sodium Chloride) 50 mls @ 200 mls/hr IVPB Q24H TRAY Vancomycin HCl 1,000 mg/ (Sodium Chloride) 250 mls @ 166.667 mls/hr IVPB 0200, 1000,1800 [facility] Insulin Human Lispro (Humalog*) 0 units SUBCUT .SEE PROTOCOL TRAY Reason: Protocol Morphine Sulfate (Morphine Inj (Syringe)*) 2 mg IV Q2H PRN Reason: PAIN Multivitamins/Minerals (Theragran/Minerals Tab*) 1 tab PO QPM [facility] Ondansetron HCl (Zofran Inj*) 4 mg IV Q6H PRN Reason: NAUSEA Oxycodone/Acetaminophen (Percocet 5/325 Tab*) 1 tab PO Q3H PRN Reason: PAIN - MODERATE Oxycodone/Acetaminophen (Percocet 5/325 Tab*) 2 tab PO Q3H PRN Reason: PAIN - MODERATE Pharmacy Consult (Vancomycin Per Pharmacy*) 1 note FOLLOW UP . PRN Reason: PER PROTOCOL Pharmacy Profile Note (Vancomycin Trough Check) 1 note FOLLOW UP 929 ONE Stop : 09/25/16 09:31 Pramipexole Dihydrochloride (Mirapex Tab*) 1 mg PO QPM [facility]RAY Topiramate (Topamax(*)) 50 mg PO QPM [facility]RAY Vital Signs 09/22/16 09/22/16 09/22/16 11:09 11:24 13:00 Temperature 97.9 F Pulse Rate 75 Respiratory 17 16 16 Rate Blood Pressure 108/55 (mmHg) O2 Sat by Pulse 100 Oximetry 09/22/16 09/22/16 09/22/16 15:00 15:17 16:24 Temperature 98.2 F Pulse Rate 70 Respiratory 16 18 Rate Blood Pressure 123/60 (mmHg) O2 Sat by Pulse 97 Oximetry 09/22/16 09/22/16 09/22/16 19:28 19:41 20:00 Temperature 98.4 F Pulse Rate 85 Respiratory 18 16 16 Rate Blood Pressure 133/64 (mmHg) O2 Sat by Pulse 97 Oximetry 09/23/16 09/23/16 09/23/16 00:03 00:40 01:40 Temperature 97.6 F Pulse Rate 74 Respiratory 18 18 16 Rate Blood Pressure 112/47 (mmHg) O2 Sat by Pulse 100 Oximetry 09/23/16 09/23/16 09/23/16 02:09 03:28 04:09 Temperature 97.9 F Pulse Rate 78 Respiratory 16 16 16 Rate Blood Pressure 104/42 (mmHg) O2 Sat by Pulse 98 Oximetry 09/23/16 09/23/16 09/23/16 04:30 05:30 07:20 Temperature 98.1 F Pulse Rate 74 Respiratory 16 16 16 Rate Blood Pressure 125/56 (mmHg) O2 Sat by Pulse 98 Oximetry Oxygen Devices in Use Now: None Appearance: NAD, sitting up in bed Eyes: No Scleral Icterus Ears/Nose/Mouth/Throat: Mucous Membranes Moist Respiratory: Symmetrical Chest Expansion and Respiratory Effort, Clear to Auscultation Cardiovascular: NL Sounds; No Murmurs; No JVD, RRR Abdominal: NL Sounds; No Tenderness; No Distention Extremities: No Edema Skin: - - Dressing to right ankle clean, dry and intact Neurological: Alert and Oriented x 3, NL Muscle Strength and Tone Lines/Tubes/Other Access: Clean, Dry and Intact Peripheral IV - site benign Nutrition: Taking PO's Result Diagrams: 09/23/16 08:44 09/23/16 08:44 Assess/Plan/Problems-Billing Assessment: Ms. Shen is a 41 yo female with PMH significant for DM type 1, HLD who is s/p right total ankle replacement who presented to the hospital with right LE cellulitis. Hospitalists have been asked to assist with co-medical management. - Patient Problems (1) Cellulitis Code(s): L03.90 - CELLULITIS, UNSPECIFIED SNOMED Code(s): 506143884 Comment: - Management per Ortho - Afebrile and no leukocytosis - ID consult pending - Continue Vanco and ceftriaxone (2) Diabetes Code(s): E11.9 - TYPE 2 DIABETES MELLITUS WITHOUT COMPLICATIONS SNOMED Code(s) : 15103620 Comment: - Glucose 40-120's - Continue insulin pump (3) HLD (hyperlipidemia) Code(s): E78.5 - HYPERLIPIDEMIA, UNSPECIFIED SNOMED Code(s): 84797774 Comment: - Continue atorvastatin (4) Migraines Code(s): G43.909 - MIGRAINE, UNSP, NOT INTRACTABLE, WITHOUT STATUS MIGRAINOSUS SNOMED Code(s): 01743138 Comment: - Continue Topamax (5) RLS (restless legs syndrome) Comment: - Continue Mirapex (6) DVT prophylaxis Code(s): [id number] - SNOMED Code(s): 402717442 Comment: - Continue Lovenox (7) Full code status Code(s): Z78.9 - OTHER SPECIFIED HEALTH STATUS SNOMED Code(s): 410404176 Status and Disposition: Inpatient. Disposition per Ortho.
[2016-09-23] MEDS: cefTRIAXone VIAL(*) 1,000 MG in NS 0.9% 50 ML* 50 ML IVPB SCH (12:36)
[2016-09-23] MEDS: Enoxaparin(*) 40 MG/0.4 ML SYR SUBCUT SCH (15:36)
[2016-09-23] MEDS: Cholecalciferol TAB* 1000 UNITS PO SCH (17:55)
[2016-09-23] MEDS: Atorvastatin* 20 MG TAB PO SCH (17:55)
[2016-09-23] MEDS: Topiramate TAB(*) 25 MG PO SCH (17:55)
[2016-09-23] MEDS: Pramipexole TAB* 0.5 MG PO SCH (17:55)
[2016-09-23] MEDS: Multivitamins/Minerals TAB PO SCH (17:55)
[2016-09-23] MEDS: Cetirizine* 10 MG TAB PO SCH (17:55)
[2016-09-23] MEDS: Gabapentin CAP(*) 300 MG PO SCH (20:01)
[2016-09-23] MEDS: Ascorbic Acid TAB* 500 MG PO SCH (20:02)
[2016-09-23] MEDS: Ferrous Sulfate TAB* 325 MG PO SCH (20:02)
[2016-09-24] MEDS: oxyCODONE/Acetamin 5/325 MG* TAB PO PRN ×3 (00:02→13:31)
[2016-09-24] MEDS: Vancomycin(*) 1,000 MG in NS 0.9% 250 ML* 250 ML IVPB SCH ×2 (02:13→09:49)
--- NOTE | 2016-09-24 10:07 | PN ---
Progress Note - Progress Note Date of Service: 09/24/16 SOAP: Subjective: []Patient seen at bedside, learning home IV antibiotic pump with a nurse. Feels well and is much improved. Awaiting recommendations from ID. Objective: [] Vital Signs Temp 98.3 F 09/24/16 03:44 Pulse 70 09/24/16 03:44 Resp 18 09/24/16 07:32 BP 109/52 09/24/16 03:44 Pulse Ox 100 09/24/16 03:44 Intake & Output 09/23/16 09/24/16 09/24/16 18:59 06:59 18:59 Intake Total 2280 3290 Output Total 1999 1999 Balance 280 1290 Intake: IV Fluids 40 0 NS (0.9%) 40 0 IVPB 330 570 ABX - CEFTRIAXONE 60 Vancomycin 270 570 Oral 1910 2720 Output: Urine 1999 1999 Other: Date of Last Bowel 09/23/16 Movement # Bowel Movements 1 Estimated Stool Amount Small Laboratory Results - last 24 hr 09/23/16 09/23/16 09/23/16 08:44 12:11 20:05 POC Glucose (mg/dL) 63 L 103 Vancomycin Trough 18.4 09/24/16 07:35 POC Glucose (mg/dL) 88 Vancomycin Trough Right ankle dressings taken down, improvement in the wet necrosis, both open areas are drying out with a nice bed of granulation tissue Active DF/PF right ankle without pain NVID Assessment: []Dorsal ankle wound dehiscence and RLE cellulitis, both improving Plan: []Home anti biotic recommendations per Dr. Machado Continue Saline WTD dressing changes
[2016-09-24] MEDS: cefTRIAXone VIAL(*) 1,000 MG in NS 0.9% 50 ML* 50 ML IVPB SCH (11:46)
[2016-09-24 12:22] VITALS: BP 143/59
--- NOTE | 2016-09-24 14:01 | CONS ---
CONSULTATION REPORT: DATE OF CONSULTATION/DICTATION: 09/24/16 HISTORY OF PRESENT ILLNESS: Alma is a 41-year-old female who is about a month out from her right total ankle arthroplasty. She was admitted 3 days ago for IV antibiotics and elevation. Immediately prior to the admission, she had had an aspirate of her tibiotalar joint which was dry. Her wound had not shown progressive healing and there was cellulitis up to the calf. Admission ultrasound was negative for DVT. She has been on vancomycin and ceftriaxone and has had now 3 days later very promising resolution of her swelling, probably 70 to 80% less redness in the leg and the wound is not draining and is healing actually with fresh granulation tissue. She is going to continue with the saline wet-to-dry dressings and home PICC line with IV antibiotics and will follow her carefully. If there is not progression of wound healing promptly, we will consider at least exchange the polyethylene if not excision of the arthroplasty. [id number]/[facility] #: [id number] [place]
[2016-09-24] MEDS: Enoxaparin(*) 40 MG/0.4 ML SYR SUBCUT SCH (15:25)
--- NOTE | 2016-09-24 17:02 | CONS ---
CONSULTATION REPORT: DATE OF CONSULT: 09/24/16 REQUESTING PHYSICIAN: Dr. Miles. CONSULTING SERVICE: Infectious Disease. REASON FOR CONSULT: Right ankle infection. IMPRESSION: 1. Status post right ankle replacement now with infection of the incision which had been low to heal, cellulitis, and suspected deeper involvement. Likely gram- positive though gram-negatives are a consideration in the lower extremity. 2. Insulin dependent diabetes. 3. Obesity. RECOMMENDATIONS: Agree with vancomycin, goal trough 15 to 20 and ceftriaxone 2 gm daily for another 4 weeks during the wound healing process and for concern of hardware involvement. We discussed that this does carry a number of those infections particularly if they are not due to Staph aureus, but that if it did recur that may require debridement and another course of IV antibiotics. She is anxious to avoid surgery at this point and is willing to accept the risk as this may come back and require further therapy. HISTORY OF PRESENT ILLNESS: This is a 41-year-old woman with bilateral ankle arthroplasties, most recently had the right ankle revision on 07/23/16. That ankle had been infected in the past at the time of an arthrodesis and had the hardware removed in 2011. She did well postoperatively and then recently developed difficulty with wound healing on the right ankle and then redness, swelling, and pain with some fevers and chills at home. She came to the hospital, started on vancomycin and ceftriaxone. She had aspiration of the ankle which was a dry tap and she had a white count of 9 on admission. She had no fevers here. She has been on vancomycin and ceftriaxone. The redness, swelling, and pain is much improved. The incision is closer together. There is minimal drainage. She has not had infection like this in the past. PAST MEDICAL HISTORY: 1. Insulin dependent diabetes. 2. Hyperlipidemia. 3. Osteoarthritis of the ankles. 4. Status post triple arthrodesis, right ankle, complicated by hardware infection, removal of hardware, and ocean transportation intermediary IV antibiotics. 5. Triple arthrodesis, left ankle. 6. Status post right total ankle arthroplasty. 7. Status post . 8. History of carpal tunnel release. 9. Status post tonsillectomy. MEDICATIONS: 1. Tylenol. 2. Vitamin C. 3. Lipitor. 4. Cetirizine. 5. Cholecalciferol. 6. Enoxaparin. 7. Ferrous sulfate. 8. Gabapentin. 9. Insulin lispro. 10. Ceftriaxone 1 gm daily. 11. Vancomycin 1 gm every 8 hours. 12. Oxycodone p.r.n. ALLERGIES: ASPIRIN and BACTRIM caused difficulty breathing. SHELLFISH, GLYSET. FAMILY HISTORY: No recurrent infections. SOCIAL HISTORY: She lives in [place]. She does not work outside the home. REVIEW OF SYSTEMS: All negative to full review of systems except as noted above. PHYSICAL EXAM: Vital Signs: Temperature is 36.7, heart rate 70, respiratory rate 16, blood pressure 120/60, and O2 sat 100% on room air. General: She is awake and not in distress. Neurologic: She is oriented x3, follows all commands. Sensation is intact to light touch in the lower extremities. HEENT: There is no conjunctival hemorrhage. Oropharynx without lesions. Neck is supple without nuchal rigidity. Lymph nodes: There is no inguinal lymphadenopathy. Heart is regular, rate, and rhythm without murmurs, rubs, or gallops. Lungs are clear to auscultation bilaterally. Abdomen is soft, nontender, and nondistended. There are bowel sounds present. Skin: There is no rash or splinter hemorrhages. Musculoskeletal: The right ankle anterior incision is open. There is small amount of exposed tendon. There is surrounding trace erythema. There is no serous drainage or fluctuance. Ankle range of motion is intact with some decreased flexion and extension. DIAGNOSTIC STUDIES/LAB DATA: From 09/23/16, white blood cell count 10, hemoglobin 11, platelets 255. Creatinine on the 9th was 0.9. Vancomycin trough on the 9th was 18.4. Please see impression and recommendations outlined above which I have discussed with Dr. Miles. Thank you for asking me to see Carroll Cuca in consultation. [id number]/[facility] #: [id number] [facility]
--- NOTE | 2016-09-25 07:58 | DS ---
DISCHARGE SUMMARY: DATE OF ADMISSION: 09/20/16 DATE OF DISCHARGE: 09/24/16 ATTENDING PHYSICIAN: Dr. Jori Miles (DICTATED BY RODRIGUEZ PORRAS) ADMISSION DIAGNOSIS: Right lower extremity cellulitis and dehiscence of right total ankle incision. DISCHARGE DIAGNOSIS: Right lower extremity cellulitis and dehiscence of right total ankle incision. HOSPITAL COURSE: The patient is a 41-year-old female who has been followed previously by Dr. 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 The patient had complications with healing and was seen in the office on 09/20/16 with wound breakdown and cellulitis and swelling in her right lower extremity. She was admitted to [facility] on the for IV antibiotic therapy. She underwent a venous Doppler upon admission, which was found to be negative for evidence of deep venous thrombosis. She was started on IV vancomycin and IV ceftriaxone was added on her second day of admission. She had significant improvement in her cellulitis and swelling. Wet-to- dry dressings were also done on the 2 areas that were opened on the dorsum of her ankle. Her wounds also appear to slightly improve during her hospital stay. She was seen by Dr. Machado from Infectious Disease and it was recommended that a PICC line be placed and she continue on ceftriaxone 2 g q.24 hours and vancomycin 1 g q.8 hours for 28 days. It was felt that she was stable medically and orthopedically for discharge to home on the date of 09/24/16. CONDITION ON DISCHARGE: She is afebrile. Her vital signs are stable. Her right lower extremity erythema has completely resolved. Swelling has gone down significantly. Two small open areas of wound dehiscence are noted with good granulation tissue and debridement of wet necrosis with the wet-to-dry dressing changes. Her gross neurovascular status is intact. She has active dorsiflexion and plantar flexion of the right ankle without pain. She is able to bear weight as tolerated. Her circulation and sensation are intact. PLAN: Discharge to home after the PICC line placement this afternoon. She will continue on ceftriaxone 2 g q.24 hours and vancomycin 1 g q.8 hours as outlined by Dr. Machado for an additional 28 days. Prescriptions of gabapentin 300 mg tablet 1 to 2 q.h.s. and oxycodone 10 mg 1/2 to 1 tablet q.6 hours p.r.n. pain also prescribed. She has a followup appointment scheduled with Dr. Miles for 10/05/16. If there are any changes in her condition prior to her scheduled appointment, the office will be contacted. RODRIGUEZ PORRAS [id number]/[facility] #: [id number] [place]
[2016-09-25] MEDS ORDERED: Vancomycin Trough Check NOTE FOLLOW UP ONE (09:30)
== END 2016-09-24 15:15 | disposition home or self-care (01) | DRG 862 ==
LOC: SSU 10:39 → UNDOADMIN 10:39 → SSU 13:39
PROVIDERS: ADMIT Orthopaedic Surgery; ATTEND Orthopaedic Surgery
PROC: 02HV33Z Insertion of Infusion Device into Superior Vena Cava, Percutaneous Approach (ICD-10-PCS; principal; 2016-09-24)
DX: T81.32XD Disruption of internal operation (surgical) wound, not elsewhere classified, subsequent encounter (principal); L03.115 Cellulitis of right lower limb; E10.9 Type 1 diabetes mellitus without complications; E78.00 Pure hypercholesterolemia, unspecified; E66.9 Obesity, unspecified; G43.909 Migraine, unspecified, not intractable, without status migrainosus; Z96.661 Presence of right artificial ankle joint; G25.81 Restless legs syndrome; Z79.4 Long term (current) use of insulin; Z88.2 Allergy status to sulfonamides; Z88.8 Allergy status to other drugs, medicaments and biological substances; Z88.6 Allergy status to analgesic agent; Z88.1 Allergy status to other antibiotic agents; Z91.013 Allergy to seafood; Z79.891 Long term (current) use of opiate analgesic; Z79.899 Other long term (current) drug therapy; Z68.37 Body mass index [BMI] 37.0-37.9, adult; Z96.662 Presence of left artificial ankle joint; Z91.018 Allergy to other foods; Z83.3 Family history of diabetes mellitus; Z82.49 Family history of ischemic heart disease and other diseases of the circulatory system; Z80.0 Family history of malignant neoplasm of digestive organs
CPT/HCPCS: 36415; 80202; 82565; 84520; 85025; 85652; 86140; A9270-GY; C1751; J0696; J1650; J2270; J3370

== ENCOUNTER 2016-11-04 15:36 | Emergency (ER) | payer OTHER ==
--- NOTE | 2016-11-04 17:53 | RAD ---
INDICATION: Recent ankle infection October 05, 2016 FINDINGS: 2 views demonstrate a tibiotalar prosthesis with evidence of prior surgical revision. There are multiple laterally placed skin quinn. There is underlying osteopenia with advanced degenerative change about the midfoot. The findings are unchanged IMPRESSION: POSTSURGICAL CHANGES DESCRIBED.
[2016-11-04 18:21] LABS: Hematocrit 41 % (35-47); Hemoglobin 13.3 g/dl (12.0-16.0); Mean Corpuscular HGB Conc 33 g/dl (31-36); Mean Corpuscular Hemoglobin 28 pg (27-31); Mean Corpuscular Volume 86 fL (80-97); Mean Platelet Volume 10 um3 (7.4-10.4); Red Blood Count 4.77 10^6/ul (4.0-5.4); Red Cell Distribution Width 14 % (10.5-15); White Blood Count 12.4 10^3/ul (3.5-10.8)
[2016-11-04 18:33] LABS: Albumin 3.8 g/dL (3.2-5.2); BUN/Creatinine Ratio 22.6 (8-20); C Reactive Protein 22.87 mg/L (< 5.00); Calcium 9.5 mg/dL (8.6-10.3); EGFR African American 85.4 (>60); EGFR Non-African American 66.4 (>60); Globulin 3.4 g/dL (2-4); Total Bilirubin 0.2 mg/dL (0.2-1.0); Total Protein 7.2 g/dL (6.4-8.9)
--- NOTE | 2016-11-04 18:37 | RAD ---
INDICATION: Pain and swelling. COMPARISON: September 20, 2016 TECHNIQUE: Duplex interrogation of the Lowerextremity was performed. FINDINGS: Deep veins: The common femoral, great saphenous, profunda femoris, proximal, mid, and distal deep femoral, popliteal, posterior tibial, and peroneal veins are patent. There is mildly limited evaluation of peroneal veins due to vessel size. There is normal compressibility, augmentation, and phasic flow. Superficial veins: There are no findings of superficial thrombophlebitis. Popliteal fossa:There is no evidence of a popliteal cyst. Soft tissues:There are no soft tissue abnormalities. IMPRESSION: No evidence of deep venous thrombosis
--- NOTE | 2016-11-04 20:05 | ED ---
Radha Alvarenga Edward, scribed for Howard Bowens MD on 11/04/16 at 1716 . Lower Extremity - HPI Summary HPI Summary: 41 y/o female presents to ED c/o sudden onset bilateral ankle swelling starting 2 nights ago. It is worse in the R foot. She has been elevating and icing her ankle for the past two days, which did not alleviate symptoms. Associated sx: mild R calf pain. Denies CP, SOB, urinary symptoms and problems with bowel movement. Pt was admitted for cellulitis on both feet last month, in which she also had bilateral pedal edema. SHx total ankle replacement (R ankle); cast off in August 2016. Pt states her wound is healing well. - History of Current Complaint Chief Complaint: EDExtremityLower Stated Complaint: SWELLING IN BOTH FEET Time Seen by Provider: 11/04/16 17:12 Hx Obtained From: Patient Onset/Duration: Days - 2 days ago Severity Currently: Moderate Pain Intensity: 7 Pain Scale Used: 0-10 Numeric Timing: Constant Associated Signs And Symptoms: Positive: Swelling - Bilateral pedal edema, Other - Mild R calf pain - Allergies/Home Medications Allergies/Adverse Reactions: Allergies Allergy/AdvReac Type Severity Reaction Status Date / Time [place] Meal Allergy See Comment Verified 09/20/16 14:39 Aspirin Allergy Anaphylatic Verified 07/23/16 06:31 Shock Miglitol [From [place]] Allergy Anaphylatic Verified 07/23/16 06:31 Shock Shellfish-derived Products Allergy Anaphylatic Verified 07/23/16 06:31 Shock Sulfa Antibiotics Allergy Hives Verified 07/23/16 06:31 Sulfamethoxazole Allergy Difficulty Verified 07/23/16 06:31 w/Trimethoprim Breathing [From Bactrim] Tree Nuts Allergy See Comment Verified 09/20/16 14:39 almonds, cashews, pecans Allergy See Comment Uncoded 07/23/16 06:31 PMH/Surg Hx/FS Hx/Imm Hx Previously Healthy: No Endocrine/Hematology History: Reports: Hx Diabetes - INSULIN PUMP Cardiovascular History: Reports: Other Cardiovascular Problems/Disorders - hyperlipidemia Respiratory History: Reports: Hx Asthma - cold induced only, no inhaler, Other Respiratory Problems/Disorders - used to be on a c-pap in 2008 - resolved, does not use anymore GI History: Reports: Hx Gastroesophageal Reflux Disease - prn med Musculoskeletal History: Reports: Hx Arthritis - RIGHT ANKLE Sensory History: Denies: Hx Contacts or Glasses, Hx Hearing Aid Opthamlomology History: Denies: Hx Contacts or Glasses Neurological History: Reports: Hx Migraine - controlled with med, Other Neuro Impairments/Disorders - restless leg syndrome, controlled with med - Surgical History Surgery Procedure, Year, and Place: 2005 LEFT FOOT OSTEOTOMY [place]. TONSILLECTOMY - 1988, [facility]. D+C 2000 [place]. CSECTION 2004 [place]. BILAT CTR 2005 [facility]. 2012 RIGHT FOOT [place]. 2012 HARDWARE REMOVAL RIGHT FOOT - [place]. 2012 SKIN GRAFT TO RIGHT FOOT [place]. 2012 LEFT ARM SKIN FLAP, VEIN REMOVAL TO RIGHT FOOT - [place]. 07/2012 TENDON REMOVAL TO LEFT ARM - [place]. RIGHT FOOT HARDWARE REMOVAL (2ND SURGERY) 09/2012 - [place]. 2012 RIGHT FOOT I+D [place]. 04/2014 TRIPLE ARTHRODESIS, RIGHT ANKLE, [facility] Hx Anesthesia Reactions: No Infectious Disease History: No Infectious Disease History: Denies: Traveled Outside the [place] in Last 30 Days - Family History Known Family History: Positive: Cardiac Disease, Diabetes, Other - [place] - Social History Alcohol Use: Rare Hx Substance Use: No Substance Use Type: Reports: None Smoking Status (MU): Former Smoker Type: Cigarettes Amount Used/How Often: 1/2 PPD Length of Time of Smoking/Using Tobacco: 20 YRS Have You Smoked in the Last Year: No Review of Systems Constitutional: Negative Eyes: Negative ENT: Negative Cardiovascular: Negative Respiratory: Negative Gastrointestinal: Negative Genitourinary: Negative Positive: Myalgia - Mild R calf pain, Edema - Bilateral pedal edema Skin: Negative Neurological: Negative Psychological: Normal All Other Systems Reviewed And Are Negative: Yes Physical Exam Triage Information Reviewed: Yes Vital Signs On Initial Exam: Initial Vitals Temp Pulse Resp BP Pulse Ox 99.5 F 100 20 142/65 97 11/04/16 15:38 11/04/16 15:38 11/04/16 15:38 11/04/16 15:38 11/04/16 15:38 Vital Signs Reviewed: Yes Appearance: Positive: Well-Appearing, No Pain Distress Skin: Positive: Warm, Skin Color Reflects Adequate Perfusion, Dry Head/Face: Positive: Normal Head/Face Inspection Eyes: Positive: EOMI, MADIE ENT: Positive: Normal ENT inspection Neck: Positive: Supple, Nontender Respiratory/Lung Sounds: Positive: Clear to Auscultation, Breath Sounds Present Cardiovascular: Positive: RRR, Other - Good dorsalis pedis pulses. Good capillary refill Abdomen Description: Positive: Nontender, Soft Bowel Sounds: Positive: Present Musculoskeletal: Positive: Strength/ROM Intact, Edema Left - Trace pedal edema, Edema Right - 1+ pedal edema, Other - Mild R calf tenderness. No tenderness above the knee Neurological: Positive: Normal, Sensory/Motor Intact, Alert, Oriented to Person Place, Time Psychiatric: Positive: Normal, Affect/Mood Appropriate Diagnostics - Vital Signs Vital Signs Temp Pulse Resp BP Pulse Ox 11/04/16 17:09 99 F 90 16 113/52 96 11/04/16 15:38 99.5 F 100 20 142/65 97 - Laboratory Lab Results: Lab Results 11/04/16 11/04/16 11/04/16 Range/Units 18:07 18:07 18:07 WBC 12.4 H (3.5-10.8) 10^3/ul RBC 4.77 (4.0-5.4) 10^6/ul Hgb 13.3 (12.0-16.0) g/dl Hct 41 (35-47) % MCV 86 (80-97) fL MCH 28 (27-31) pg MCHC 33 (31-36) g/dl RDW 14 (10.5-15) % Plt Count 294 (150-450) 10^3/ul MPV 10 (7.4-10.4) um3 Neut % (Auto) 59.7 (38-83) % Lymph % (Auto) 26.7 (25-47) % [place] % (Auto) 8.7 (1-9) % Eos % (Auto) 3.9 (0-6) % Baso % (Auto) 1.0 (0-2) % Absolute Neuts (auto) 7.4 (1.5-7.7) 10^3/ul Absolute Lymphs (auto) 3.3 (1.0-4.8) 10^3/ul Absolute Monos (auto) 1.1 H (0-0.8) 10^3/ul Absolute Eos (auto) 0.5 (0-0.6) 10^3/ul Absolute Basos (auto) 0.1 (0-0.2) 10^3/ul Absolute Nucleated RBC 0 10^3/ul Nucleated RBC % 0 INR (Anticoag Therapy) 0.84 L (0.89-1.11) APTT 29.5 (26.0-36.3) seconds Sodium 139 (133-145) mmol/L Potassium 4.0 (3.5-5.0) mmol/L Chloride 107 (101-111) mmol/L Carbon Dioxide 27 (22-32) mmol/L Anion Gap 5 (2-11) mmol/L BUN 21 (6-24) mg/dL Creatinine 0.93 (0.51-0.95) mg/dL Est GFR ( Amer) 85.4 (>60) Est GFR (Non-Af Amer) 66.4 (>60) BUN/Creatinine Ratio 22.6 H (8-20) Glucose 49 L (70-100) mg/dL POC Glucose (mg/dL) (70-100) mg/dL Lactic Acid (0.5-2.0) mmol/L Calcium 9.5 (8.6-10.3) mg/dL Total Bilirubin 0.20 (0.2-1.0) mg/dL AST 13 (13-39) U/L ALT 14 (7-52) U/L Alkaline Phosphatase 106 H (34-104) U/L C-Reactive Protein 22.87 H (< 5.00) mg/L Total Protein 7.2 (6.4-8.9) g/dL Albumin 3.8 (3.2-5.2) g/dL Globulin 3.4 (2-4) g/dL Albumin/Globulin Ratio 1.1 (1-3) 11/04/16 11/04/16 Range/Units 18:07 19:19 WBC (3.5-10.8) 10^3/ul RBC (4.0-5.4) 10^6/ul Hgb (12.0-16.0) g/dl Hct (35-47) % MCV (80-97) fL MCH (27-31) pg MCHC (31-36) g/dl RDW (10.5-15) % Plt Count (150-450) 10^3/ul MPV (7.4-10.4) um3 Neut % (Auto) (38-83) % Lymph % (Auto) (25-47) % [place] % (Auto) (1-9) % Eos % (Auto) (0-6) % Baso % (Auto) (0-2) % Absolute Neuts (auto) (1.5-7.7) 10^3/ul Absolute Lymphs (auto) (1.0-4.8) 10^3/ul Absolute Monos (auto) (0-0.8) 10^3/ul Absolute Eos (auto) (0-0.6) 10^3/ul Absolute Basos (auto) (0-0.2) 10^3/ul Absolute Nucleated RBC 10^3/ul Nucleated RBC % INR (Anticoag Therapy) (0.89-1.11) APTT (26.0-36.3) seconds Sodium (133-145) mmol/L Potassium (3.5-5.0) mmol/L Chloride (101-111) mmol/L Carbon Dioxide (22-32) mmol/L Anion Gap (2-11) mmol/L BUN (6-24) mg/dL Creatinine (0.51-0.95) mg/dL Est GFR ( Amer) (>60) Est GFR (Non-Af Amer) (>60) BUN/Creatinine Ratio (8-20) Glucose (70-100) mg/dL POC Glucose (mg/dL) 65 L (70-100) mg/dL Lactic Acid 1.0 (0.5-2.0) mmol/L Calcium (8.6-10.3) mg/dL Total Bilirubin (0.2-1.0) mg/dL AST (13-39) U/L ALT (7-52) U/L Alkaline Phosphatase (34-104) U/L C-Reactive Protein (< 5.00) mg/L Total Protein (6.4-8.9) g/dL Albumin (3.2-5.2) g/dL Globulin (2-4) g/dL Albumin/Globulin Ratio (1-3) Result Diagrams: 11/04/16 18:07 11/04/16 18:07 Lab Statement: Any lab studies that have been ordered have been reviewed, and results considered in the medical decision making process. - Radiology ANKLE XR Xray Interpretation: Positive (See Comments) - POSTSURGICAL CHANGES DESCRIBED. Radiology Interpretation Completed By: Radiologist - Ultrasound No standard instances Ultrasound Interpretation: No Acute Changes - VENOUS DOPPLER STUDY - No evidence of deep venous thrombosis Ultrasound Interpretation Completed By: Radiologist Lower Extremity Course/Dx - Course Course Of Treatment: DR SWANSON SAW PATIENT IN ED. ADMIT STABLE. - Diagnoses Provider Diagnoses: Edema Discharge - Discharge Plan Condition: Stable Disposition: ADMITTED TO [facility] Discharge Disposition Comment: Sign out to Dr. Saurabh Willoughby at shift change. Pending labs Referrals: Temo BAIRD,Niall Oleary [Primary Care Provider] - The documentation as recorded by the Radha denis Edward accurately reflects the service I personally performed and the decisions made by me, Howard Bowens MD.
[2016-11-04 21:25] VITALS: BP 118/70
[2016-11-04 21:57] LABS: Add Path Review? NO
--- NOTE | 2016-11-04 23:59 | CONS ---
CONSULTATION REPORT: DATE OF CONSULT: 11/04/16 - EMERGENCY DEPT CHIEF COMPLAINT: Foot and ankle swelling, right. HISTORY: The patient is a 41-year-old woman, with a complicated surgical history involving the right ankle, with a recent right ankle arthroplasty performed on 07/23/16, with a postoperative course significant for low grade fevers, pain and swelling in early September, leading to a hospital admission on 09/01, diagnosis of cellulitis, and treatment with IV followed by oral antibiotics. Now on oral antibiotics, the patient presented to the emergency department today complaining of some foot and ankle swelling, bilateral, right worse than left. She also describes some numbness and tingling in all toes of the right foot. That is new. Both symptoms have developed in the last 3 days. The patient has a long surgical history involving the right foot and ankle. In 2011, she had multiple fusion surgeries performed in [place], [place], which were complicated by infection, which required multiple irrigation and debridement. The patient met Dr. Miles and he performed the above-mentioned surgery without incident or difficulty in July 2016. The patient's postoperative course was uncomplicated until her admission in September. The patient also had some breakdown of her surgical wound, anterior about the foot and ankle, likely secondary to chaffage in her postoperative boot, according to the patient. The patient had cellulitis, was admitted for several days, and then was discharged on IV antibiotics via PICC line followed by oral antibiotics. She has been followed by Dr. Miles and Dr. Bo Machado. The patient has been on oral antibiotics, Keflex, for several weeks and is scheduled to take them for 6 more days. She states that she has appointments on 11/15/[address] Miles and Dr. Machado. The patient states for the last 2 or 3 days, she has had these symptoms. She has not been on her feet more than usual. She denies fevers, sweats, chills. She denies recent trauma. She denies chest pain or shortness of breath. She denies increased warmth. She states that she noticed some swelling, particularly in bilateral feet and the numbness and tingling in the toes. The patient admits to being nervous given her history of multiple infections and multiple surgeries, right ankle. The patient waited on the symptoms for 2 days before deciding to present to the hospital. PAST MEDICAL HISTORY: Insulin dependent diabetes, hypercholesterolemia. PAST SURGICAL HISTORY: Multiple surgeries right ankle, section, carpal tunnel release, tonsillectomy. MEDICATIONS: 1. Gabapentin. 2. Oxycodone. 3. Victoza. 4. Humalog. 5. Atorvastatin. 6. Pramipexole. 7. Zyrtec. 8. Mononessa. 9. Multivitamin. 10. Vitamin D and C and iron supplement. 11. Keflex. ALLERGIES: ASPIRIN, BACTRIM, GLYSET, SULFA, SHELLFISH. REVIEW OF SYSTEMS: Negative for fevers and chills. Negative for night sweats. Negative for chest pain or shortness of breath. PHYSICAL EXAMINATION: Vital signs at 5:09 p.m. on 11/04/16; temperature 99.0 degrees Fahrenheit, pulse 90, blood pressure 113/52, respiratory rate 16 and O2 sat 96% on room air. No acute distress. Alert and oriented. Appropriate mood and affect. Gait not assessed as the patient is currently using crutches with some limitation of weight bearing. Appropriate coordination, bilateral upper and lower extremities , appropriate dress and hygiene. Right lower extremity exam demonstrates no palpable tender lymphadenopathy. No lymphangitic erythematous streaking. Calf is soft to palpation. Surgical incision about the anterior ankle is closed with the exception of some scabbing right about the tibiotalar joint and some diastasis: Minimal, perhaps 5 mm for stretch of 4 mm proximal to the ankle joint. No significant tenderness to palpation to the surrounding skin, although there is some erythema to it, likely consistent with healing tissue. Multiple surgical incision scars about the ankle. Passive range of motion of the ankle without pain. Passive range of motion is 10 degrees of dorsiflexion and 10 degrees of plantar flexion approximately. Some minimal tenderness about the ankle just secondary to the nature of my vigorous palpating but no significant tenderness to palpation anywhere about the ankle. No increased warmth of the ankle and no skin erythema besides miguelina- incisional. No significant soft tissue swelling to my eyes about the right lower leg and foot. Circumference of lower leg and foot approximately the same between right and left lower extremities with the exception of the area of some obvious skin flap performed about the medial right ankle. Neurovascularly intact distally. Sensation intact right toes. IMAGING: Three x-ray views of the right ankle show a total ankle arthroplasty in place. No obvious fracture. No subluxation or dislocation of the joint arthroplasty components. No obvious breakage of hardware. Duplex ultrasound negative for DVT right lower extremity. LABORATORY DATA: White blood cell count 12.4. ESR not obtained. CRP 22.87. Glucose 49 and then 65. ASSESSMENT: 1. Possible right ankle infection, although unlikely. 2. Subjective right and left foot and ankle soft tissue swelling, possibly resolved with elevation before I met the patient. 3. Multiple surgeries right ankle. 4. Recent history of cellulitis, right lower extremity requiring IV and then oral antibiotics. 5. Insulin dependent diabetes mellitus. PLAN: 1. Given the patient's long and complicated history with this ankle and the reaccumulation of some degree of soft tissue swelling, which may have been present but ebbed by the time that I had seen her, it seems better to err on the side of caution. Therefore, in order to gain diagnostic information, I performed an aspirate right ankle joint. I did so after communicating with Dr. Miles, the operating surgeon in July. 2. PROCEDURE: Aspiration of right ankle joint. Verbal consent, sterile technique, tolerated it well. I went through a medial approach to the ankle. Infused 1 cc of lidocaine using a 25-gauge needle into the subcutaneous tissue overlying my approach. Then with an 18-gauge needle, I aspirated 2.2 cc of clear blood-tinged fluid. 3. Sent fluid for cultures, Gram stain, cell count and crystals, sent. 4. I will have the emergency department discharge the patient to home. 5. The patient will continue her oral antibiotics, Keflex. 6. The patient will follow up with Dr. Miles as scheduled on 11/15/16 or sooner if her symptoms persist or worsen, either the swelling right or bilateral feet and ankles or the sensation of tingling and numbness, new onset, right toes. [id number]/[facility] #: [id number] MTDD
--- NOTE | 2016-11-05 05:24 | ED ---
Tawana Alvarenga Rebecca, scribed for Saurabh Willoughby MD on 11/04/16 at 2150 . Progress - Progress Note Progress Note: Pt was evaluated and signed out by Dr. Bowens. Patient was seen by Dr. Saldana in the ED she she had an arthrocentesis of the knee. He said that she is stable and may go home to follow up with Dr. Miles. She was directed to continue Keflex as prescribed. Pt is stable and will be D/C to home with a Dx of cellulitis and directions to continue Keflex. Course/Dx - Diagnoses Provider Diagnoses: Cellulitis The documentation as recorded by the Tawana denis Rebecca accurately reflects the service I personally performed and the decisions made by Case linda Drew, MD.
== END 2016-11-04 22:05 | disposition home or self-care (01) ==
LOC: ED 15:36
DX: R60.0 Localized edema (principal); L03.116 Cellulitis of left lower limb; L03.115 Cellulitis of right lower limb; Z96.661 Presence of right artificial ankle joint; E11.9 Type 2 diabetes mellitus without complications; Z96.41 Presence of insulin pump (external) (internal); E78.5 Hyperlipidemia, unspecified; J45.909 Unspecified asthma, uncomplicated; K21.9 Gastro-esophageal reflux disease without esophagitis; G43.909 Migraine, unspecified, not intractable, without status migrainosus; Z98.41 Cataract extraction status, right eye; Z98.42 Cataract extraction status, left eye; Z88.2 Allergy status to sulfonamides; Z88.6 Allergy status to analgesic agent; Z91.013 Allergy to seafood; Z87.891 Personal history of nicotine dependence
CPT/HCPCS: 36415; 80053; 83605; 85025; 85610; 85730; 86140; 87070; 87205; 87640; 87641; 89060; 99282

== ENCOUNTER → 2018-04-21 05:43 | Day surgery (SDC) | payer OTHER ==
[~2018-04-21 05:43] MED LIST changes: +Acetaminophen TAB* 325 MG PO PRN; -Buffered Lidocaine 1% SYR 3ML* 3 ML/SYR SYRINGE INTRADERM ONE; +Buffered Lidocaine 1% SYRIN* 1 ML/SYRINGE INTRADERM ONE; +Bupivacaine 0.5%* 50 ML VIAL ONE; -Famotidine IV* 10 MG/ML 2 ML (20 mg) IV ONE; +KETAMINE HCL* 50 MG/ML 10 ML VIAL ONE; +Ketorolac INJ* 30 MG/ML 1 ML VIAL ONE; +Lactated Ringers 1000 ML Bag* 1,000 ML IV SCH; +Lidocaine 2% PF * 5 ML VIAL ONE; +Lidocaine 2% PF* 10 ML AMP ONE; +Midazolam* 1 MG/ML 2 ML VIAL (2 MG) ONE; +Naloxone* 0.4 MG/ML 1 ML VIAL IV PRN; +Ondansetron INJ* 2 MG/ML VIAL IV PRN; +Propofol* 10 MG/ML 20 ML BTL ONE; +ceFAZolin 2 GM PREMIX in ORs 2 GM/50 ML BAG IVPB ONE; +fentaNYL* 50 MCG/ML 2 ML VIAL (100 MCG VIAL) ONE; +oxyCODONE TAB* 5 MG TAB ONE
[2018-04-21] MEDS: fentaNYL* 50 MCG/ML 2 ML VIAL (100 MCG VIAL) IV PRN ×2 (09:20→09:38)
[2018-04-21] MEDS: oxyCODONE TAB* 5 MG TAB PO PRN ×2 (09:24→10:12)
[2018-04-21 10:33] VITALS: BP 124/73
--- NOTE | 2018-04-21 20:18 | OP ---
DATE OF OPERATION: 04/21/18 - [facility] DATE OF : 75 SURGEON: Jori Miles MD COMMODITIES MANAGER: Angella Ac PA-C PRE-OP DIAGNOSIS: Chronic nonhealing wound, anterior right tibiotalar arthroplasty. POST-OP DIAGNOSIS: Chronic nonhealing wound, anterior right tibiotalar arthroplasty. OPERATIVE PROCEDURE: Debridement of wound, partial closure, partial VAC dressing, aspiration of right ankle for culture and sensitivity. DESCRIPTION OF PROCEDURE: The patient was taken to the operating room, where the most distal wound which was about 1 x 4 cm in length was ellipticized and carved out to a depth of about 4 to 5 mm. This was a relatively clean bed at this point and led itself after irrigation to closure with 3-0 Monocryl and 3-0 Nylon for the skin. The more proximal wound which was about 1 x 2 cm in size was more shallow but wider. So this one, we scraped down to good bleeding subcutaneous tissue and applied a small VAC dressing. The patient also had a posterior splint applied. [id number]/[facility] #: [id number] [facility]
== END | disposition home or self-care (01) ==
LOC: OR 05:43
PROVIDERS: ATTEND Orthopaedic Surgery
DX: T81.41XA Infection following a procedure, superficial incisional surgical site, initial encounter (principal); E11.9 Type 2 diabetes mellitus without complications; Z79.4 Long term (current) use of insulin; Z96.41 Presence of insulin pump (external) (internal); J45.909 Unspecified asthma, uncomplicated; Z87.891 Personal history of nicotine dependence; E78.5 Hyperlipidemia, unspecified
CPT/HCPCS: 81025; 87070; 87073; 87205; A9270-GY; J0690; J1885; J2001; J2250; J2704; J3010